=== PATIENT | male | born 1955 | race African-American/Black ===

== ENCOUNTER 2017-10-30 10:50 | Inpatient (IN) | payer OTHER ==
[~2017-10-30] VITALS: Ht 175.3 cm; Wt 61.7 kg
[2017-10-30 11:02] VITALS: BP 124/89
[2017-10-30 11:40] LABS: BASOPHILS % (AUTO) 1.6 % (0.0-2.0); EOSINOPHILS % (AUTO) 2.1 % (0.0-3.0); HEMATOCRIT 45.6 % (42.0-52.0); HEMOGLOBIN 13.9 G/DL (14.2-18.0); LYMPHOCYTES % (AUTO) 37.1 % (20.0-45.0); MEAN CORPUSCULAR VOLUME 86 FL (80-99); MONOCYTES % (AUTO) 6.9 % (1.0-10.0); NEUTROPHILS % (AUTO) 52.4 % (45.0-75.0); PLATELET COUNT 203 K/UL (150-450); RED BLOOD COUNT 5.31 M/UL (4.70-6.10); RED CELL DISTRIBUTION WIDTH 14.4 % (11.6-14.8); WHITE BLOOD COUNT 7.8 K/UL (4.8-10.8)
[2017-10-30] MEDS ORDERED: DEPAKOTE ER250 MG ORAL (11:40)
[2017-10-30] MEDS ORDERED: NORVASC10 MG ORAL (11:40)
[2017-10-30] MEDS ORDERED: FLUTICASONE PRO16 G1 NASAL (11:40)
[2017-10-30] MEDS ORDERED: ASPIR-LOW81 MG ORAL (11:40)
[2017-10-30] MEDS ORDERED: METOPROLOL SUCC25 MG ORAL (11:40)
[2017-10-30] MEDS ORDERED: SENNA8.6 M2 PO (11:40)
[2017-10-30] MEDS ORDERED: DOCUSATE SODIU100 M2 ORAL (11:40)
[2017-10-30] MEDS ORDERED: ROBAXIN500 MG PO (11:40)
[2017-10-30] MEDS ORDERED: XARELTO20 MG ORAL (11:40)
[2017-10-30] MEDS ORDERED: GABAPENTIN800 MG ORAL (11:40)
[2017-10-30] MEDS ORDERED: NAPROXEN500 M1 ORAL (11:40)
[2017-10-30] MEDS ORDERED: VASOTEC20 MG ORAL (11:40)
[2017-10-30] MEDS ORDERED: ZANTAC150 MG ORAL (11:40)
[2017-10-30] MEDS ORDERED: LD2JL30 TOPIC (11:40)
[2017-10-30] MEDS ORDERED: NITROSTAT0.4 M2 SL (11:40)
[2017-10-30] MEDS ORDERED: IMITREX50 MG ORAL (11:40)
[2017-10-30] MEDS ORDERED: PAMELOR10 MG ORAL (11:40)
[2017-10-30] MEDS ORDERED: LIPITOR40 MG ORAL (11:40)
[2017-10-30] MEDS ORDERED: TERAZOSIN HCL5 MG PO (11:41)
[2017-10-30] MEDS ORDERED: TRAMADOL HCL50 MG ORAL (11:42)
[2017-10-30] MEDS ORDERED: GEODON40 MG ORAL (11:42)
[2017-10-30 11:44] LABS: INR 1.1 (0.9-1.1)
[2017-10-30 11:46] LABS: ANION GAP 10 mmol/L (5-15); BLOOD UREA NITROGEN 17 mg/dL (7-18); CALCIUM 8.2 MG/DL (8.5-10.1); CARBON DIOXIDE 21 MMOL/L (21-32); CHLORIDE 109 MMOL/L (98-107); CREATININE 1.3 MG/DL (0.55-1.30); POTASSIUM 3.9 MMOL/L (3.5-5.1); SODIUM 140 MMOL/L (136-145)
[2017-10-30 11:51] LABS: ALANINE AMINOTRANSFERASE 188 U/L (12-78); ALBUMIN/GLOBULIN RATIO 0.8 (1.0-2.7); ALKALINE PHOSPHATASE 92 U/L (46-116); ASPARTATE AMINO TRANSFERASE 72 U/L (15-37); BILIRUBIN,TOTAL 0.7 MG/DL (0.2-1.0)
[2017-10-30 13:02] VITALS: BP 145/104
[2017-10-30 13:17] LABS: APPEARANCE,URINE CLEAR; BILIRUBIN, URINE NEGATIVE (NEGATIVE); GLUCOSE, URINE (UA) NEGATIVE (NEGATIVE); KETONES,URINE NEGATIVE (NEGATIVE); LEUKOCYTE ESTERASE ,URINE NEGATIVE (NEGATIVE); NITRITE,URINE NEGATIVE (NEGATIVE); PH,URINE 5 (4.5-8.0); PROTEIN,URINE 2+ (NEGATIVE); UROBILINOGEN,URINE NORMAL MG/DL (0.0-1.0)
[2017-10-30 13:18] LABS: COLOR,URINE YELLOW
--- NOTE | 2017-10-30 13:51 | Diagnostic Imaging Report ---
Indication: Dyspnea Comparison: None A single view chest radiograph was obtained. Findings: Mild interstitial edema suspected with prominent vascularity and heart size. Bones are osteopenic. IMPRESSION: Mild CHF suspected
--- NOTE | 2017-10-30 14:18 | Emergency Room Report ---
History of Present Illness General Chief Complaint: Dyspnea/Respdistress Source: Medical Record (Chi Davies M.D.) Present Illness HPI This patient is here with general malaise, weakness, fatigue. No specific complaint, specifically he denies fever, chest pain abdominal pain nausea vomiting diarrhea. he denies cough, shortness of breath. He can tolerate by mouth without difficulty. No changes medications. He lives on his own and does his own ADLs. he does not usually come to [facility], he usually goes to [facility]. His last hospitalization he thinks was about a year ago and he thinks it was for "fluid around the heart". (Chi Davies M.D.) Allergies: Coded Allergies: ACETAMINOPHEN (Verified Allergy, Unknown, 10/30/17) HYDROCODONE (Verified Allergy, Unknown, 10/30/17) Nursing Documentation-[facility] Past Medical History: No History, Except For Hx Cardiac Problems: Yes - CHF Hx Hypertension: Yes Hx Gastrointestinal Problems: Yes - GERD Hx Cerebrovascular Accident: Yes (Chi Davies M.D.) Review of Systems Constitutional: Reports: malaise, weakness Eye: Reports: no symptoms ENT: Reports: no symptoms Respiratory: Reports: shortness of breath Cardiovascular: Reports: no symptoms Gastrointestinal: Reports: no symptoms Genitourinary: Reports: no symptoms Musculoskeletal: Reports: no symptoms Skin: Reports: no symptoms Psychiatric: Reports: no symptoms Neurological: Reports: no symptoms Endocrine: Reports: no symptoms Hematologic/Lymphatic: Reports: no symptoms Allergic: Reports: no symptoms (Chi Davies M.D.) Physical Exam Vital Signs Date Time Temp Pulse Resp B/P (MAP) Pulse Ox O2 Delivery O2 Flow Rate FiO2 10/30/17 10:44 99.0 93 18 130/94 93 Room Air 99.0 Sp02 EP Interpretation: reviewed, normal General Appearance: normal inspection, well appearing, no apparent distress, alert, GCS 15, non-toxic, Chronically Ill Head: normocephalic, atraumatic Eyes: bilateral eye normal inspection, bilateral eye PERRL, bilateral eye EOMI ENT: normal ENT inspection, hearing grossly normal, normal pharynx, no angioedema, normal voice, moist mucus membranes Neck: normal inspection, full range of motion, supple, no meningismus, no bony tend Respiratory: normal inspection, lungs clear, normal breath sounds, no rhonchi, no respiratory distress, no retraction, no accessory muscle use, no wheezing Cardiovascular #1: normal inspection, regular rate, rhythm, no edema Gastrointestinal: normal inspection, normal bowel sounds, non tender, soft, no mass, non-distended Musculoskeletal: gait/station normal, normal range of motion Neurologic: normal inspection, alert, oriented x3, responsive, motor strength/ tone normal Psychiatric: normal inspection, judgement/insight normal, memory normal Suicide Risk Assessment: Suicidal Ideation: No Had intent to initiate attempt: No Pt's plan for suicide attempt: No Has means to complete attempt: No Skin: normal inspection, normal color, no rash, warm/dry (Chi Davies M.D.) Medical Decision Making Diagnostic Impression: Primary Impression: Rapid atrial fibrillation Additional Impression: Dyspnea Qualified Codes: R06.00 - Dyspnea, unspecified ER Course This patient appeared moderately fatigued, older than age on presentation. But not infectious. No crackles, consolidation, no cough. HR 135 a fib. Paperwork shows a fib and on Xarelto and Metoprolol. His meds did not include diuretics. Here CXR cardiomegaly, +/- mild congestion and first trop 0.029 (neg). He does have a PMD at [facility]. First trop negative and second trop will be checked by next MD. I anticipate tele admit. First dose IV Diltiazem ordered. A: rapid a fib IV Diltiazem in ED (Chi Davies M.D.) ER Course Hospital Course 62 yo M presents with dyspnea, rapid afib Clinical course Patient initially seen and evaluated by Dr. Davies; please see her note for full history and physical converted with diltiazem labs reviewed- no leukocytosis, hemoglobin/hematocrit ok, electrolytes okay, troponins negative 0.029 EKG - afib, RVR, no acute ischemic change sinterpreted by me Chest x-ray- CHF ASA given. Patient will be admitted to Dr. Hussain Rodriguez. I feel this is a highly complex case requiring extensive working including EKG/Rhythm strip, Xray/CT/US, Blood/urine lab work, repeat exams while in ED, and administration of strong opiates/narcotics for pain control, admission to hospital or close patient follow up. Diagnosis - afib, dyspnea admitted to telemetry in serious condition Labs Test 10/30/17 11:02 10/30/17 11:50 10/30/17 14:20 White Blood Count 7.8 K/UL (4.8-10.8) Red Blood Count 5.31 M/UL (4.70-6.10) Hemoglobin 13.9 G/DL (14.2-18.0) Hematocrit 45.6 % (42.0-52.0) Mean Corpuscular Volume 86 FL (80-99) Mean Corpuscular Hemoglobin 26.2 PG (27.0-31.0) Mean Corpuscular Hemoglobin Concent 30.5 G/DL (32.0-36.0) Red Cell Distribution Width 14.4 % (11.6-14.8) Platelet Count 203 K/UL (150-450) Mean Platelet Volume 7.9 FL (6.5-10.1) Neutrophils (%) (Auto) 52.4 % (45.0-75.0) Lymphocytes (%) (Auto) 37.1 % (20.0-45.0) Monocytes (%) (Auto) 6.9 % (1.0-10.0) Eosinophils (%) (Auto) 2.1 % (0.0-3.0) Basophils (%) (Auto) 1.6 % (0.0-2.0) Prothrombin Time 12.0 SEC (9.30-11.50) Prothromb Time International Ratio 1.1 (0.9-1.1) Sodium Level 140 MMOL/L (136-145) Potassium Level 3.9 MMOL/L (3.5-5.1) Chloride Level 109 MMOL/L (98-107) Carbon Dioxide Level 21 MMOL/L (21-32) Anion Gap 10 mmol/L (5-15) Blood Urea Nitrogen 17 mg/dL (7-18) Creatinine 1.3 MG/DL (0.55-1.30) Estimat Glomerular Filtration Rate 55.6 mL/min (>60) Glucose Level 94 MG/DL (74-106) Calcium Level 8.2 MG/DL (8.5-10.1) Total Bilirubin 0.7 MG/DL (0.2-1.0) Aspartate Amino Transf (AST/SGOT) 72 U/L (15-37) Alanine Aminotransferase (ALT/SGPT) 188 U/L (12-78) Alkaline Phosphatase 92 U/L (46-116) Troponin I 0.029 ng/mL (0.000-0.056) 0.031 ng/mL (0.000-0.056) Total Protein 6.6 G/DL (6.4-8.2) Albumin 3.0 G/DL (3.4-5.0) Globulin 3.6 g/dL Albumin/Globulin Ratio 0.8 (1.0-2.7) Urine Color Yellow Urine Appearance Clear Urine pH 5 (4.5-8.0) Urine Specific [place] 1.020 (1.005-1.035) Urine Protein 2+ (NEGATIVE) Urine Glucose (UA) Negative (NEGATIVE) Urine Ketones Negative (NEGATIVE) Urine Occult Blood Negative (NEGATIVE) Urine Nitrite Negative (NEGATIVE) Urine Bilirubin Negative (NEGATIVE) Urine Urobilinogen Normal MG/DL (0.0-1.0) Urine Leukocyte Esterase Negative (NEGATIVE) Urine RBC 0-2 /HPF (0 - 0) Urine WBC 2-4 /HPF (0 - 0) Urine Squamous Epithelial Cells Few /LPF (NONE/OCC) Urine Bacteria Few /HPF (NONE) Urine Hyaline Casts 0-2 /LPF (NONE) Urine Opiates Screen Negative (NEGATIVE) Urine Barbiturates Screen Negative (NEGATIVE) Phencyclidine (PCP) Screen Negative (NEGATIVE) Urine Amphetamines Screen Negative (NEGATIVE) Urine Benzodiazepines Screen Negative (NEGATIVE) Urine Cocaine Screen Negative (NEGATIVE) Urine Marijuana (THC) Screen Negative (NEGATIVE) Pro-B-Type Natriuretic Peptide 3768 pg/mL (0-125) (Hebert Thomas MD) EKG Diagnostic Results Rate: tachycardiac Rhythm: other ST Segments: no acute changes Other Impression a fib 135 (Chi Davies M.D.) Rate: tachycardiac Rhythm: other - afib ST Segments: no acute changes ASA given to the pt in ED: Yes (Hebert Thomas MD) Rhythm Strip Diag. Results Rhythm Strip Time: 11:11 EP Interpretation: yes Rate: 135 a fib Rhythm: other (Chi Davies M.D.) EP Interpretation: yes Rhythm: no PVC's, no ectopy (Hebert Thomas MD) Chest X-Ray Diagnostic Results Chest X-Ray Diagnostic Results : Chest X-Ray Ordered: Yes # of Views/Limited/Complete: 1 View Indication: Shortness of Breath EP Interpretation: Yes Interpretation: no consolidation, no effusion, no pneumothorax, other - chf Impression: Other - chf (Hebert Thomas MD) Last Vital Signs Date Time Temp Pulse Resp B/P (MAP) Pulse Ox O2 Delivery O2 Flow Rate FiO2 10/30/17 11:02 120 16 Room Air 10/30/17 11:02 97.7 124/89 98 97.7 Status: improved (Chi Davies M.D.) Status: improved (Hebert Thomas MD) Disposition: ADMITTED INPATIENT Admit Decision Time: 14:28 (Chi Davies M.D.) Condition: Serious Referrals: NON PHYSICIAN (PCP) Chi Davies M.D. Oct 30, 2017 14:18 Hebert Thomas MD Oct 30, 2017 16:25
[2017-10-30] MEDS ORDERED: dilTIAZem HCl 25mg/5ml Inj IVP ONE (14:30)
[2017-10-30 14:31] VITALS: BP 112/89
[2017-10-30 16:31] VITALS: BP 138/103
[2017-10-30 18:23] VITALS: BP 150/80
[2017-10-30] MEDS ORDERED: Milk of Magnesia 30ml Ud ORAL PRN (19:30)
[2017-10-30] MEDS ORDERED: Zolpidem 5mg tab ORAL PRN (19:30)
[2017-10-30 20:00] VITALS: BP 140/91
[2017-10-30] MEDS: Xarelto 10mg tab ORAL SCH (20:52)
[2017-10-30] MEDS ORDERED: Sennosides 8.6mg ORAL PRN (21:30)
[2017-10-30] MEDS ORDERED: traMADol 50mg tab ORAL PRN (21:30)
[2017-10-30] MEDS ORDERED: Nitroglycerin Subl 0.4mg tab SL PRN (21:30)
[2017-10-30] MEDS: Metoprolol Succinate XL 25mg tab ORAL SCH ×2 (21:30→23:35)
[2017-10-30] MEDS ORDERED: Naproxen 500mg tab ORAL PRN (21:30)
[2017-10-30] MEDS ORDERED: Methocarbamol 500mg tab ORAL PRN (21:30)
[2017-10-30] MEDS ORDERED: SUMAtriptan 50mg tab ORAL PRN (21:30)
[2017-10-30] MEDS: Flonase Nasal Inhaler 16gm NASAL SCH (22:45)
[2017-10-30] MEDS: Nortriptyline 10mg cap ORAL SCH (22:45)
[2017-10-30] MEDS: Docusate 100mg cap ORAL SCH (23:35)
[2017-10-30] MEDS: Ziprasidone 20mg cap ORAL SCH (23:36)
[2017-10-30] MEDS: Depakote ER 250mg tab ORAL SCH (23:36)
[2017-10-31] VITALS: BP 144/92
[2017-10-31 04:00] VITALS: BP 144/92
[2017-10-31 08:00] VITALS: BP 124/69
[2017-10-31 08:21] LABS: BASOPHILS % (AUTO) 0.8 % (0.0-2.0); EOSINOPHILS % (AUTO) 2.5 % (0.0-3.0); HEMATOCRIT 44.7 % (42.0-52.0); HEMOGLOBIN 13.8 G/DL (14.2-18.0); LYMPHOCYTES % (AUTO) 46.7 % (20.0-45.0); MEAN CORPUSCULAR VOLUME 87 FL (80-99); MONOCYTES % (AUTO) 6.7 % (1.0-10.0); NEUTROPHILS % (AUTO) 43.4 % (45.0-75.0); PLATELET COUNT 187 K/UL (150-450); RED BLOOD COUNT 5.15 M/UL (4.70-6.10); RED CELL DISTRIBUTION WIDTH 14.5 % (11.6-14.8); WHITE BLOOD COUNT 6.1 K/UL (4.8-10.8)
[2017-10-31] MEDS: Vitamin D 1000 IU Tab ORAL SCH (08:42)
[2017-10-31] MEDS: Depakote ER 250mg tab ORAL SCH ×2 (08:43→20:17)
[2017-10-31] MEDS: Aspirin EC 81mg tab ORAL SCH (08:43)
[2017-10-31] MEDS: Atorvastatin 20mg tab ORAL SCH (08:43)
[2017-10-31] MEDS: Docusate 100mg cap ORAL SCH ×2 (08:43→17:14)
[2017-10-31 08:45] LABS: ANION GAP 8 mmol/L (5-15); BLOOD UREA NITROGEN 16 mg/dL (7-18); CALCIUM 8.4 MG/DL (8.5-10.1); CARBON DIOXIDE 24 MMOL/L (21-32); CHLORIDE 111 MMOL/L (98-107); CREATININE 1.1 MG/DL (0.55-1.30); POTASSIUM 3.9 MMOL/L (3.5-5.1); SODIUM 143 MMOL/L (136-145)
[2017-10-31] MEDS ORDERED: Metoprolol Succinate XL 50mg tab ORAL SCH ×2 (09:00→18:45)
[2017-10-31] MEDS: Ziprasidone 20mg cap ORAL SCH ×2 (10:52→17:14)
[2017-10-31 12:00] VITALS: BP 122/75
[2017-10-31] MEDS: Flonase Nasal Inhaler 16gm NASAL SCH ×2 (13:36→17:15)
[2017-10-31 16:00] VITALS: BP 115/85
[2017-10-31] MEDS ORDERED: SUMAtriptan 50mg tab ORAL PRN (16:30)
--- NOTE | 2017-10-31 17:02 | History and Physical Report ---
DATE OF ADMISSION: 10/30/2017 REASON FOR ADMISSION: Atrial fibrillation and CHF. HISTORY OF PRESENT ILLNESS: This 62-year-old male presents with rapid atrial fibrillation. The patient also with worsening edema. The patient lives on his own. The patient presented to the emergency room, usually goes to [facility], presently comfortable, admitted for the above. PAST MEDICAL HISTORY: CHF, atrial fibrillation, reflux disease, and CVA. MEDICATIONS: Reviewed. ALLERGIES: Reviewed. REVIEW OF SYSTEMS: Reviewed. PHYSICAL EXAMINATION: GENERAL: An obese male without significant distress. VITAL SIGNS: Blood pressure 144/92, pulse 102, temperature 97, respiratory rate is 19. HEENT: Negative. NECK: Supple. No adenopathy. LUNGS: With moderate breath sounds. Occasional crackles. CARDIAC: Irregularly irregular. Tachycardic. ABDOMEN: Soft. EXTREMITIES: With significant edema. LABORATORY AND DIAGNOSTIC DATA: Noted and reviewed. Imaging reviewed. IMPRESSION: 1. Atrial fibrillation with rapid ventricular response. 2. Pulmonary edema. 3. Hypertension. 4. Transaminitis of unclear etiology. RECOMMENDATIONS: Supportive care. Beta-blockers. Anticoagulation. Cardiology evaluation. Statin with caution and start Lasix. Follow clinically, recommend, stabilize, and monitor for change and once improved, we will proceed with discharge planning. Nicolás Nixon M.D. DR: JOHNATHAN JOB#: [id number] CC:
--- NOTE | 2017-10-31 19:11 | Cardiology Progress Note ---
Assessment/Plan Assessment/Plan The patient is seen and examined, full consult note will be dictated. Objective Last 24 Hour Vital Signs Date Time Temp Pulse Resp B/P (MAP) Pulse Ox O2 Delivery O2 Flow Rate FiO2 10/31/17 18:45 107 115/85 10/31/17 16:00 97.0 100 21 115/85 (95) 98 97.0 10/31/17 16:00 107 10/31/17 12:00 128 10/31/17 12:00 97.0 72 20 122/75 (91) 97 97.0 10/31/17 09:00 Nasal Cannula 2.0 10/31/17 08:43 71 124/69 10/31/17 08:42 71 124/69 10/31/17 08:00 111 10/31/17 08:00 96.6 71 22 124/69 (87) 96 96.6 10/31/17 04:00 97.0 93 19 144/92 (109) 97 97.0 10/31/17 04:00 102 10/31/17 00:00 113 10/31/17 00:00 97.9 116 20 144/92 (109) 96 97.9 10/30/17 23:36 144/92 10/30/17 23:35 116 144/92 10/30/17 22:29 Nasal Cannula 2.0 10/30/17 20:00 97.0 123 24 140/91 (107) 96 97.0 10/30/17 20:00 116 Intake and Output 10/30/17 10/31/17 19:00 07:00 Intake Total 0 ml Output Total 800 ml Balance -800 ml Intake Oral 0 ml Output Urine Total 800 ml # Voids 1 1 Laboratory Tests Test 10/31/17 04:00 10/31/17 06:00 10/31/17 08:00 Sodium Level 143 MMOL/L (136-145) Potassium Level 3.9 MMOL/L (3.5-5.1) Chloride Level 111 MMOL/L (98-107) H Carbon Dioxide Level 24 MMOL/L (21-32) Anion Gap 8 mmol/L (5-15) Blood Urea Nitrogen 16 mg/dL (7-18) Creatinine 1.1 MG/DL (0.55-1.30) Estimat Glomerular Filtration Rate > 60 mL/min (>60) Glucose Level 82 MG/DL (74-106) Calcium Level 8.4 MG/DL (8.5-10.1) L Troponin I 0.036 ng/mL (0.000-0.056) White Blood Count 6.1 K/UL (4.8-10.8) Red Blood Count 5.15 M/UL (4.70-6.10) Hemoglobin 13.8 G/DL (14.2-18.0) L Hematocrit 44.7 % (42.0-52.0) Mean Corpuscular Volume 87 FL (80-99) Mean Corpuscular Hemoglobin 26.7 PG (27.0-31.0) L Mean Corpuscular Hemoglobin Concent 30.8 G/DL (32.0-36.0) L Red Cell Distribution Width 14.5 % (11.6-14.8) Platelet Count 187 K/UL (150-450) Mean Platelet Volume 7.9 FL (6.5-10.1) Neutrophils (%) (Auto) 43.4 % (45.0-75.0) L Lymphocytes (%) (Auto) 46.7 % (20.0-45.0) H Monocytes (%) (Auto) 6.7 % (1.0-10.0) Eosinophils (%) (Auto) 2.5 % (0.0-3.0) Basophils (%) (Auto) 0.8 % (0.0-2.0) Tee Mittal MD Oct 31, 2017 19:11
[2017-10-31 20:00] VITALS: BP 112/76
[2017-10-31] MEDS: Nortriptyline 10mg cap ORAL SCH (20:10)
[2017-10-31] MEDS: Xarelto 10mg tab ORAL SCH (20:10)
[2017-11-01] VITALS: BP 119/64
--- NOTE | 2017-11-01 02:46 | Consultation ---
DATE OF CONSULTATION: 10/31/2017 CARDIOLOGY CONSULTATION CONSULTING PHYSICIAN: Tee Mittal M.D. REFERRING PHYSICIAN: Nicolás Nixon M.D. REASON FOR CONSULTATION: Management of atrial fibrillation. HISTORY OF PRESENT ILLNESS: The patient is a very unfortunate 62-year-old gentleman, who presented to the hospital with complaints of generalized malaise, weakness, and fatigue. The patient has had history of atrial fibrillation for many years. A 12-lead electrocardiogram in fact in the emergency department confirmed atrial fibrillation with a rapid ventricular response. Initial blood pressure was 130/94 mmHg. He denied any chest pain or shortness of breath at the time of arrival to the hospital. He was told about a year ago that he has fluid around his heart. PAST MEDICAL HISTORY: 1. History of atrial fibrillation. 2. History of pericardial effusion. 3. History of congestive heart failure. 4. History of hypertension. 5. History of gastroesophageal reflux disease. 6. History of CVA. PAST SURGICAL HISTORY: None. ALLERGIES: To acetaminophen and hydrocodone. MEDICATIONS: Amlodipine 10 mg p.o. daily, aspirin 81 mg p.o. daily, Lipitor 40 mg p.o. at bedtime, Depakote 250 mg q.12 hours, Colace 100 mg twice daily, Vasotec 20 mg at bedtime, fluticasone one spray nasally daily, gabapentin 1200 mg three times a day, lidocaine gel 5 mL topical three times a day, Robaxin 500 mg four times a day, metoprolol 25 mg p.o. daily, naproxen 500 mg twice a day, nitroglycerin 0.4 mg sublingual q.5 hours p.r.n. chest pain, nortriptyline 10 mg by mouth at bedtime, Zantac 150 mg twice daily, Xarelto 20 mg by mouth daily, senna 8.6 mg p.o. daily p.r.n. constipation, Imitrex 25 mg p.o. daily as needed migraine, terazosin 5 mg p.o. at bedtime, Ultram 100 mg q.8 hours p.r.n. pain, and Geodon 80 mg p.o. twice daily. SOCIAL HISTORY: The patient denies any tobacco, alcohol, or illicit drug use. REVIEW OF SYSTEMS: A 12-system review done essentially negative except what mentioned in the history of present illness. PHYSICAL EXAMINATION: VITAL SIGNS: Blood pressure is 130/94, respirations of 18, pulse of 93, temperature 99.0 degrees Fahrenheit, and O2 saturation . GENERAL: The patient is a very unfortunate, obese 62-year-old gentleman, in no apparent respiratory distress. Alert and oriented x4. HEENT: Atraumatic and normocephalic. Anicteric. Pupils are equal, round, and reactive to light and accommodation. Extraocular muscles intact. NECK: JVP is less than 5 cm. No carotid bruit. Carotid upstrokes 2+ bilaterally. CARDIOVASCULAR: Normal S1, S2. Irregularly irregular rhythm. No murmurs, gallops, or rubs. PMI is at fourth intercostal space in the midclavicular line. LUNGS: Clear to auscultation bilaterally. ABDOMEN: Soft, nontender, and nondistended. No hepatosplenomegaly. Positive bowel sounds. EXTREMITIES: A 1 to 2+ bilateral lower extremity edema. LABORATORY AND DIAGNOSTIC DATA: Chest x-ray showed cardiomegaly with congestive heart failure/pulmonary edema. Laboratory findings, WBC 7.8, hemoglobin 13.9, hematocrit 45.3, and platelet count is 203,000. Sodium 140, potassium 3.9, chloride 109, bicarbonate 21, BUN of 17, creatinine 1.3, glucose is 94, and calcium is 8.2. Troponin I x3 is negative. ProBNP is 3768. INR is 1.1. Toxicology is negative. A 12-lead electrocardiogram shows atrial fibrillation with rapid ventricular response, heart rate of 128, right bundle-branch block, and nonspecific ST and T-wave abnormalities. A 2D echocardiography was done and shows global left ventricular hypokinesia with LVEF of about 40% to 45%, most likely due to underlying atrial fibrillation, mild LV enlargement, mild biatrial enlargement, moderate mitral regurgitation, diastolic dysfunction could not be evaluated in view of underlying atrial fibrillation, mild tricuspid regurgitation with right ventricular systolic pressure measured at 37 mmHg consistent with mild pulmonary hypertension. ASSESSMENT AND PLAN: The patient is a very unfortunate 62-year-old gentleman, seen in Cardiology consultation at the request of Dr. Nixon. 1. Most likely permanent atrial fibrillation. The patient will be continued on Xarelto and high dose of metoprolol. The patient as an outpatient was 25 mg by mouth daily. We will switch to 50 mg twice daily. May need to add digoxin for rate control. 2. Moderate LV systolic dysfunction, could be secondary to underlying atrial fibrillation. The LVEF is about 40% to 45%. The patient will continued on beta-ambrosio. Tight blood pressure control is suggested. The patient has been diagnosed with cardiomyopathy for over a year. It is not clear whether the patient had any ischemic workup. the patient regarding prior history of cardiac catheterization. I would like to thank, Dr. Nixon, for allowing me to participate in the care of this patient. Tee Mittal M.D. DR: PAUL JOB#: [id number] CC:
[2017-11-01 04:00] VITALS: BP 110/60
[2017-11-01 08:00] VITALS: BP 132/60
[2017-11-01] MEDS: Flonase Nasal Inhaler 16gm NASAL SCH (08:17)
[2017-11-01] MEDS: Vitamin D 1000 IU Tab ORAL SCH (08:18)
[2017-11-01] MEDS: Ziprasidone 20mg cap ORAL SCH (08:18)
[2017-11-01] MEDS: Docusate 100mg cap ORAL SCH (08:19)
[2017-11-01] MEDS: Atorvastatin 20mg tab ORAL SCH (08:21)
[2017-11-01 08:22] VITALS: BP 132/60
[2017-11-01] MEDS: Aspirin EC 81mg tab ORAL SCH (08:22)
[2017-11-01] MEDS: Depakote ER 250mg tab ORAL SCH (08:22)
[2017-11-01 08:38] LABS: ANION GAP 7 mmol/L (5-15); BLOOD UREA NITROGEN 15 mg/dL (7-18); CALCIUM 8.5 MG/DL (8.5-10.1); CARBON DIOXIDE 27 MMOL/L (21-32); CHLORIDE 111 MMOL/L (98-107); CREATININE 1.2 MG/DL (0.55-1.30); POTASSIUM 3.9 MMOL/L (3.5-5.1); SODIUM 145 MMOL/L (136-145)
[2017-11-01] MEDS ORDERED: Metoprolol Succinate XL 100mg tab ORAL SCH (09:00)
--- NOTE | 2017-11-01 09:02 | General Progress Note ---
Assessment/Plan Assessment/Plan 1. Atrial fibrillation with rapid ventricular response. 2. Pulmonary edema. 3. Hypertension. 4. Transaminitis of unclear etiology. PLAN dc home maintain xarelto increase metoprolol to 100mg daily outpatient follow up patient aware stable for dc return to ER if symptoms recur Subjective Allergies: Coded Allergies: ACETAMINOPHEN (Verified Allergy, Unknown, 10/30/17) HYDROCODONE (Verified Allergy, Unknown, 10/30/17) Subjective wants to go home cards noted Objective Last 24 Hour Vital Signs Date Time Temp Pulse Resp B/P (MAP) Pulse Ox O2 Delivery O2 Flow Rate FiO2 11/01/17 08:22 85 132/60 11/01/17 08:22 85 132/60 11/01/17 08:00 97.5 85 19 132/60 (84) 98 97.5 11/01/17 04:00 96.3 84 19 110/60 (77) 96 96.3 11/01/17 04:00 92 11/01/17 00:00 96.9 80 20 119/64 (82) 97 96.9 11/01/17 00:00 103 10/31/17 21:00 120 10/31/17 21:00 Room Air 10/31/17 20:18 112/76 10/31/17 20:00 97.4 75 20 112/76 (88) 96 97.4 10/31/17 18:45 107 115/85 10/31/17 16:00 97.0 100 21 115/85 (95) 98 97.0 10/31/17 16:00 107 10/31/17 12:00 128 10/31/17 12:00 97.0 72 20 122/75 (91) 97 97.0 Intake and Output 10/31/17 11/01/17 19:00 07:00 Intake Total 380 ml Output Total 3400 ml Balance -3020 ml Intake Oral 380 ml Output Urine Total 3400 ml # Voids 1 Laboratory Tests 11/01/17 05:50: Sodium Level 145, Potassium Level 3.9, Chloride Level 111H, Carbon Dioxide Level 27, Anion Gap 7, Blood Urea Nitrogen 15, Creatinine 1.2, Estimat Glomerular Filtration Rate > 60, Glucose Level 86, Calcium Level 8.5, Pro-B- Type Natriuretic Peptide 2351H Height (Feet): 5 Height (Inches): 9.00 Weight (Pounds): 136 Objective WDWN NAD clear breath sounds bilaterally without rhonchi or wheeze S1S2 iRRR without MRG NABS nontender no HSM no CC; mild edema nonfocal Nicolás Nixon MD Nov 01, 2017 09:02
[2017-11-01] MEDS ORDERED: TOPAMAX100 MG ORAL (11:24)
--- NOTE | 2017-11-02 21:28 | Cardiology Report ---
APPROVED REPORT EXAM: Two-dimensional and M-mode echocardiogram with Doppler and color Doppler. INDICATION Atrial Fibrillation M-Mode DIMENSIONS IVSd1.2 (0.7-1.1cm)Left Atrium (MM)4.9 (1.6-4.0cm) LVDd6.1 (3.5-5.6cm)Aortic Root4.0 (2.0-3.7cm) PWd2.0 (0.7-1.1cm)Aortic Cusp Exc.2.7 (1.5-2.0cm) IVSs1.8 cm LVDs4.3 (2.5-4.0cm) PWs2.2 cm Technically difficult study due to poor acoustical windows . Global left ventricular hypokinesia. Mild left ventricular enlargement. Left ventricular ejection fraction estimated to be 35-40%. Ischemic cardiomyopathy cannot be excluded. No evidence of left ventricular hypertrophy. Trace posterior pericardial effusion. Mild bi-atrial enlargements . Right ventricular chamber sizes is within normal limits. Focal aortic valve sclerosis with adequate cusp excursion. Thickened mitral valve leaflets with normal excursion. Mitral annulus and aortic root calcification. Pulmonic valve not well visualized. Normal tricuspid valve structure. IVC dilated at 2.6 cm without physiologic collapse suggestive of increased RA pressure. A color flow and spectral Doppler study was performed and revealed: No aortic regurgitation. Moderate mitral regurgitation. Mitral inflow velocities cannot be assessed due to atrial fibrillation. Mild tricuspid regurgitation. Tricuspid systolic velocities suggests peak right ventricular systolic pressure of 37 mmHg,consistent with mild pulmonary hypertension.
--- NOTE | 2017-11-04 07:58 | Discharge Summary ---
Discharge Summary Discharge Summary _ DATE OF ADMISSION: 10/30/2017 DATE OF DISCHARGE: 11/01/2017 REASON FOR ADMISSION: 62 years old male with past medical history significant for atrial fibrillation , congestive heart failure, hypertension, GERD, CVA, presented with feeling of fatigue and weakness . Upon evaluation he found to be in rapid atrial fibrillation and being dyspneic. No chest pain, no dizziness. no blackouts. EKG revealed atrial fibrillation with rapid ventricular response. Chest x-ray revealed evidence of pulmonary edema. Urine toxicology screen was negative. Troponin was negative. Pro BNP 3768. AST 72, ALT 188. Stable renal parameters,electrolytes. No leukocytosis, stable hemoglobin and hematocrit. Diltiazem was given in emergency room and patient converted to sinus rhythm. Aspirin was given in emergency department. Patient admitted for further management with diagnosis of rapid atrial fibrillation, pulmonary edema, hypertension,transaminitis of [id number] CONSULTANTS: commissioner of conciliation Dr. Mittal [facility] COURSE: Patient admitted to telemetry floor. Cardiology consult was requested. Serial troponin were negative. Patient started on diuresis with IV Lasix. Cardiorenal parameters and volumes were closely monitored. Echocardiogram revealed moderate left ventricular systolic dysfunction with ejection fraction 35-40% and right ventricular systolic pressure of 37 consistent with mild pulmonary hypertension. Rate was controlled with beta ambrosio, dose was uptitrated. Anticoagulation provided with Xarelto. According to commissioner of conciliation, patient most likely had permanent atrial fibrillation., and moderate systolic dysfunction possibly secondary to underlying atrial fibrillation. Rate was controlled. Anticoagulation continued. Patient was on antiplatelet therapy with aspirin. Blood pressure was managed with multiple regimen of calcium channel ambrosio, beta ambrosio, RAÚL inhibitor ,and chlorthalidone. Renal parameters remained stable. Pro BNP trending down. Troponin x 2 negative. Patient started on statin with cautioned due to elevated LFT. Supportive care provided. Pain management addressed. Bowel regimen instituted . Home medications continued. Patient clinically improved and was stable for discharge home. FINAL DIAGNOSES: Atrial fibrillation with rapid ventricular response Most likely permanent atrial fibrillation Pulmonary edema Moderate left ventricular systolic dysfunction( possibly secondary to underlying atrial fibrillation). Hypertension Transaminitis of unknown etiology DISCHARGE MEDICATIONS: DISCHARGE INSTRUCTIONS: Patient was discharged home. Follow up with her primary care provider in one week. Monitor LFT. Patient advised to go to Emergency room if symptoms recur. I have been assigned to dictate discharge summary for this account. I was not involved in the patient's management. Avani Josue NP Nov 04, 2017 07:58
== END 2017-11-01 12:16 | disposition home or self-care (01) | DRG 201 ==
LOC: EDBD 10:50 → EMR 12:16 → 2E 15:30 → EDBEDREQ 15:59
DX: I48.2 Chronic atrial fibrillation (principal); J81.1 Chronic pulmonary edema; I10 Essential (primary) hypertension; K21.9 Gastro-esophageal reflux disease without esophagitis; R74.0 Nonspecific elevation of levels of transaminase and lactic acid dehydrogenase [LDH]; Z79.82 Long term (current) use of aspirin; Z86.73 Personal history of transient ischemic attack (TIA), and cerebral infarction without residual deficits
CPT/HCPCS: 36415; 71045; 80048; 80053; 80307; 81001; 83880; 84484; 85025; 85610; 93005; 93306; 99285